=== PATIENT | female | born 1995 | race Caucasian/White ===

== ENCOUNTER 2017-11-19 21:41 | Emergency (ER) | payer OTHER ==
[2017-11-19 21:46] VITALS: BP 113/69; PULSE 78; RESP 16; TEMP 98.2; O2SAT 97
--- NOTE | 2017-11-19 22:38 | EDPHY ---
H & P Stated Complaint: R foot injury Time Seen by Provider: 11/19/17 21:45 HPI/ROS: HPI CHIEF COMPLAINT: Right ankle pain HISTORY OF PRESENT ILLNESS: Patient is a very pleasant 22-year-old female otherwise healthy no significant medical history does not take any daily medications she presents emergency room with left ankle pain to the lateral ankle. Over the lateral malleolus. Patient states that she had alcohol intoxication earlier today she drank multiple shots. She was on a roof and fell off a roof onto a deck. Approximately 5 ft height loss. She landed on her right foot. She has right lateral ankle pain. She states she has difficulty walking. Denies any other areas of injury. It is now almost 11 o'clock at night and she is clinically sober. She has some mild swelling over the right lateral malleolus. Past Medical History: Denies significant medical history Past Surgical History: Denies significant surgical history Social History: Denies daily use of drugs alcohol tobacco. Did have alcohol this evening. Family History: Noncontributory ROS REVIEW OF SYSTEMS: A comprehensive 10 point review of systems is otherwise negative aside from elements mentioned in the history of present illness. Exam Constitutional triage nursing summary reviewed, vital signs reviewed, awake/ alert. Eyes normal conjunctivae and sclera, EOMI, PERRLA. HENT normal inspection, atraumatic, moist mucus membranes, no epistaxis, neck supple/ no meningismus, no raccoon eyes. Respiratory clear to auscultation bilaterally, normal breath sounds, no respiratory distress, no wheezing. Cardiovascular rate normal, regular rhythm, no murmur, no edema, distal pulses normal. Gastrointestinal soft, non-tender, no rebound, no guarding, normal bowel sounds, no distension, no pulsatile mass. Genitourinary no CVA tenderness. Musculoskeletal right lower extremity: Tender palpation over the right lateral malleolus. Mild swelling noted. Otherwise neurovascular intact. Compartment soft. Good distal pulse. Good cap refill. no midline vertebral tenderness, full range of motion, no calf swelling, no tenderness of extremities, no meningismus, good pulses, neurovascularly intact. Skin pink, warm, & dry, no rash, skin atraumatic. Neurologic awake, alert and oriented x 3, AAOx3, moves all 4 extremities equally, motor intact, sensory intact, CN II-XII intact, normal cerebellar, normal vision, normal speech. Psychiatric normal mood/affect. Heme/Lymph/Immune no lymphadenopathy. Differential Diagnosis: Includes but is not limited to in a particular order: The right ankle sprain, right ankle contusion, ankle fracture Medical Decision Making: Plan for this patient x-ray of the right ankle, rule out fracture or malalignment. Re-evaluation: X-ray of the right ankle is reviewed by myself. I do not appreciate any malalignment or significant fracture. Patient be placed on crutches, walking boot. I do recommend ice, anti-inflammatory pain medicine. Recommend following up with Orthopedics as needed. Discussed this at length with the patient. She understands. She is comfortable this plan. Source: Patient - Personal History LMP (Females 10-55): Over 28 Days Ago Current Tetanus/Diphtheria Vaccine: Yes Current Tetanus Diphtheria and Acellular Pertussis (TDAP): Yes - Medical/Surgical History Hx Asthma: No Hx Chronic Respiratory Disease: No Hx Diabetes: No Hx Cardiac Disease: No Hx Renal Disease: No Hx Cirrhosis: No Hx Alcoholism: No Hx HIV/AIDS: No Hx Splenectomy or Spleen Trauma: No - Social History Smoking Status: Never smoked Constitutional: Initial Vital Signs Temperature (C) 36.8 C 11/19/17 21:44 Heart Rate 78 11/19/17 21:44 Respiratory Rate 16 11/19/17 21:44 Blood Pressure 113/69 11/19/17 21:44 O2 Sat (%) 97 11/19/17 21:44 O2 Delivery Mode Room Air Allergies/Adverse Reactions: No Known Allergies Allergy (Unverified 11/19/17 21:45) Home Medications: Medication Instructions Recorded Ibuprofen [Motrin (*)] 800 mg PO Q6-8PRN #10 tab 11/19/17 Departure - Departure Disposition: Home, Routine, Self-Care Clinical Impression: Ankle sprain Qualifiers: Encounter type: initial encounter Involved ligament of ankle: unspecified ligament Laterality: right Qualified Code(s): S93.401A - Sprain of unspecified ligament of right ankle, initial encounter Condition: Good Instructions: Ankle Sprain (ED) Additional Instructions: 1. Ice your ankle. 2. Use your crutches and walking boot to help ambulate. 3. Take anti-inflammatory pain medicine like Tylenol Motrin for pain control. 4. Follow up with Orthopedics as needed. Referrals: NONE *PRIMARY CARE P,. [Primary Care Provider] - As per Instructions Prescriptions: Ibuprofen [Motrin (*)] 800 mg PO Q6-8PRN #10 tab
== END 2017-11-19 22:53 | disposition home or self-care (01) ==
DX: S93.401A Sprain of unspecified ligament of right ankle, initial encounter (principal); W13.2XXA Fall from, out of or through roof, initial encounter; Y99.8 Other external cause status; Y93.89 Activity, other specified
CPT/HCPCS: L4386